=== PATIENT | female | born 1995 | race Caucasian/White ===

== ENCOUNTER 2020-08-23 13:25 | Inpatient (IN) | payer BC, SELFPAY ==
[2020-08-23] VITALS (29 sets, daily range): BP systolic 94–135; BP diastolic 53–93; PULSE 69–141; RESP 18; TEMP 36.6–37.2; O2SAT 94–100; BMI 31.5
--- NOTE | 2020-08-23 13:00 | PCM.HP.OB ---
- Problem List (1) 38 weeks gestation of Status: Acute (2) SROM (spontaneous rupture of membranes) Status: Acute History Date of Admission: 08/23/20 Final BALTA: 09/03/20 Final BALTA Source: LMP Gestational age: 38 Weeks and 3 Days History of this : This is a 25 year-old, G [1], P [0], at 38.3 weeks gestational age that presents with spontaneous rupture of membranes today at 1115. Patient reports large gush of clear fluid and continues to leak. Denies any vaginal bleeding. Patient having mild, irregular cramps. Positive movement. uncomplicated. Allergies No Known Allergies Allergy (Verified 08/23/20 13:36) Smoking Status: Never smoker Number of Fetus(es): 1 NST - FHR Rate Baby A Baseline: 140 Variability:: Moderate Accelerations:: 15 x 15 Decelerations:: None NST Reactive:: Yes FHR Category:: Category I Uterine Activity:: occasional History Past Pregnancies: Past Pregnancies Delivery Date Name GA/ Weeks Outcome Route Wt Infant Sex Labor Length Anesthesia Delivery Location Provider FOB Labs: B+ Rubella - immune HB- neg HC- neg RPR- NR HIV- NR GC/CH- neg GBS- negative COVID- 19 - negative Expected Infant Delivery Method: Spontaneous Vaginal Review of Systems Constitutional: Denies: Chills, Fever, Weight Change HEENT: Denies: Head Aches, Sinus Congestion, Sinus Drainage Cardiovascular: Denies: Chest Pain, Palpitations Respiratory: Denies: Cough, Shortness of breath at rest, Sputum production Gastrointestinal: Denies: Abdominal Pain, Nausea, Vomiting Genitourinary: Denies: Dysuria Skin: Denies: Rash, Wounds Neurological: Denies: Numbness, Tingling, Focal weakness Physical Exam Vitals: Vital Signs Temp Pulse BP Pulse Ox 98.6 F 92 110/53 L 96 08/23/20 18:10 08/23/20 19:33 08/23/20 19:33 08/23/20 19:16 General: Alert, Oriented x3, Cooperative HEENT: Atraumatic Cardiovascular: Regular rate Lungs: Normal air movement Abdomen: Soft, Non Tender, Gravid Neurological: Cranial nerves II-XII grossly intact Assessment/Plan All Active Problems 38 weeks gestation of (Acute) SROM (spontaneous rupture of membranes) (Acute) (spontaneous vaginal delivery) (Acute) This is a 25 year-old, G [1], P [0], at 38.3 weeks gestational age with spontaneous rupture of membranes. Admit to labor and delivery Routine labs IV fluids per orders GBS negative Category 1 tracing- NST reactive Cytotec 25 mcg PO x1 then reevaluate CE in [address] Mejia notified and is collaborating physician
[2020-08-23 13:59] LABS: Absolute Lymphocyte Count 1.29 X10^3/uL (0.83-4.51); Absolute Neutrophil Count 9.6 X10^3/uL (2.0-7.7); Basophil# 0.03 X10^3/uL; Basophil% 0.3 % (0-1); Eosinophil# 0.01 X10^3/uL; Eosinophils% 0.1 % (0-5); Hematocrit 38.3 % (37-47); Hemoglobin 12.8 g/dL (12.0-15.0); Lymphocyte # 1.29 X10^3/ul (4.0); Lymphocyte % 11.1 % (19-41); Mean Corp Hgb Conc 33.4 g/dL (32-36); Mean Corpuscular Hgb 31.3 pg (27.0-32.0); Mean Corpuscular Volume 93.6 fL (81-99); Mean Platelet Vol. 10.6 fl (6.2-12.0); Monocyte# 0.61 X10^3/uL; Monocyte% 5.2 % (0-10); NRBC Flagged by Analyzer 0 % (0-5); Neutrophil % 82.6 % (47-70); Platelet Count 227 K/mm3 (150-450); RBC Distribution Width CV 13.9 % (11.6-14.6); RBC Distribution Width SD 46.7 fl (35.1-43.9); Red Blood Count 4.09 M/mm3 (4.2-5.4); White Blood Count 11.6 K/mm3 (4.4-11.0)
[2020-08-23] MEDS: miSOPROStol 25 MCG TABLET PO (14:29)
[2020-08-23] MEDS: miSOPROStol 50 MCG TABLET PO (14:30)
[2020-08-23] MEDS: Lactated Ringers 1,000 ML 50 ML IV (16:10)
[2020-08-23] MEDS: Lactated Ringers 500 ML 999 ML IV (16:20)
[2020-08-23] MEDS: fentaNYL-bupivacaine (epidural) 100 ML BAG EPIDURAL (17:25)
[2020-08-23] MEDS: Oxytocin 30 units/NS 500 ml 30 UNITS/500 ML IV.SOLN 334 UNITS IV (18:50)
--- NOTE | 2020-08-23 19:26 | PCM.OPRPT ---
Problem List (1) 38 weeks gestation of Status: Acute (2) SROM (spontaneous rupture of membranes) Status: Acute (3) (spontaneous vaginal delivery) Status: Acute Report of Operation Date of Procedure: 08/23/20 Pre-Operative Diagnosis: Term gestation, spontaneous rupture of membranes Post-Operative Diagnosis: Same, live female Vaginal Delivery Maternal Presentation: Spontaneous Rupture of Membranes Patient presented to unit with SROM today at 1115 for clear fluid. Patient reported mild, irregular contractions with positive movement. Amniotic Membrane Rupture Type: Spontaneous at home Rupture of Membrane time: 1115 Amniotic Fluid Description: Clear Final BALTA: 09/03/20 Gestational age: 38 Weeks and 3 Days Date of Procedure: 08/23/20 Pre-Operative Diagnosis: Term gestation, SROM Post-Operative Diagnosis: Same, live female Surgery/ Procedure Performed: Spontaneous Vaginal Delivery Type of Anesthesia: Epidural, Local with 1% lidocaine Description of Procedure: Patient progressed to complete dilation with urge to bear down. Minimal pain relief from epidural. Provided labor support to patient and assisted with positioning changes and massage. Patient involuntarily pushing. Infant head delivered with minimal effort followed by posterior, anterior shoulder and remainder of . Vigorous female placed on maternal abdomen. 3 vessel cord clamped and cut by RN after 3 minute delay. Infant placed skin to skin with patient. Pitocin IV started for active management of the 3rd stage. Placenta delivered spontaneously and intact. Patient has plans to take placenta home to encapsulate. After inspection it was noted a second degree perineal laceration present. Laceration repaired in normal fashion using 3-0 Vicryl. Hemostasis occurred. Fundus firm 2 below U. Vaginal sweep completed by me. All instruments, laps and needles accounted for. Infant and patient bonding. EBL 200 cc APGARS- 8/9 Dr. Mejia notified of delivery Presentation: DEVYN Placental Delivery Description: Spontaneous Placenta Disposition: [facility] - Patient signed consent to take placenta home Cord Vessel Description: 3 Vessels Cord Entanglement: None Estimated Blood Loss: 200 Infant A gender: Female (1 minute): 8 (5 minute): 9 Episiotomy Description: None Laceration: 2nd degree Medications given after delivery: IV Pitocin Complications: None
[2020-08-23] MEDS: Ibuprofen 600 MG Tablet PO (22:25)
[2020-08-24] VITALS (10 sets, daily range): BP systolic 104–122; BP diastolic 52–67; PULSE 62–79; RESP 16–20; TEMP 36.5–36.8; O2SAT 93–96
--- NOTE | 2020-08-24 05:34 | NURSING ---
Release of placenta and waiver of liability consent signed and in chart, copy given to patient. Placenta in room in patient cooler.
[2020-08-24] MEDS: Ibuprofen 600 MG Tablet PO ×2 (08:57→16:35)
--- NOTE | 2020-08-24 10:02 | PCM.PN.OB ---
Patient Problems: Active and Suspected Problems 38 weeks gestation of (Acute) SROM (spontaneous rupture of membranes) (Acute) (spontaneous vaginal delivery) (Acute) Subjective: Patient seen at bedside. Feeling good. with support. Ambulating and voiding without difficulty. Pain is controlled. Desires discharge home tomorrow. - Physical Exam Vitals/I&O's: Vital Signs Temp Pulse Resp BP Pulse Ox 97.8 F 73 16 116/62 95 08/24/20 04:15 08/24/20 08:46 08/24/20 04:15 08/24/20 08:46 08/24/20 04:18 Oxygen Delivery Method Room Air Weight: 201 lb 4 oz Body Mass Index (BMI) 31.5 Intake and Output for Last 24 Hours 08/22/20 08/23/20 08/24/20 23:59 23:59 23:59 Intake Total 1388.33 / 1388.33 Output Total 800 / 800 600 / 600 Balance 588.33 / 588.33 -600 / -600 General: Alert, Oriented x3, Cooperative Oral: Moist Mucosa Lungs: Normal air movement Cardiovascular: Regular rate Abdomen: Soft, Non Tender Extremities: Capillary Refill Less than 3 Seconds Skin: No rashes Neurological: Cranial nerves II-XII grossly intact Psych/Mental Status: Normal Affect Microbiology Past 72 Hours 08/23/20 14:00 Mucosa - Nose SARS-CoV-2 Antigen (Rapid) - Final Laboratory Results 08/23/20 13:45: WBC 11.6 H, RBC 4.09 L, Hgb 12.8, Hct 38.3, MCV 93.6, MCH 31.3, MCHC 33.4, RDW Std Deviation 46.7 H, RDW Coeff of Farzad 13.9, Plt Count 227, MPV 10.6, Immature Gran % (Auto) 0.700, Neut % (Auto) 82.6 H, Lymph % (Auto) 11.1 L, [place] % (Auto) 5.2, Eos % (Auto) 0.1, Baso % (Auto) 0.3, Absolute Neuts (auto) 9.6 H, Absolute Lymphs (auto) 1.29, Nucleated RBC % 0 08/23/20 13:45: Blood Type B POSITIVE, Antibody Screen NEGATIVE Current Medications Acetaminophen (Acetaminophen 500 Mg Tablet) 1,000 mg PO Q8H PRN PRN PRN Reason: Pain Score 1-3 Bisacodyl (Bisacodyl 10 Mg Suppository) 10 mg RECTAL UD PRN PRN Reason: If no BM Dibucaine (Dibucaine 30 Gm Tube) 1 applic TOPICAL TID PRN PRN; Protocol PRN Reason: Discomfort Hydrocortisone (Hydrocortisone 2.5% Crm) 1 applic TOPICAL TID PRN PRN; Protocol PRN Reason: Discomfort Ibuprofen (Ibuprofen 600 Mg Tablet) 600 mg PO Q6H PRN PRN PRN Reason: Pain Score 1-3 Last Admin: 08/24/20 08:57 Dose: 600 mg Documented by: Methylergonovine Maleate (Methylergonovine 0.2 Mg/Ml Ampul) 0.2 mg IM X1 PRN PRN Reason: Excess bleeding/uterine atony Ondansetron HCl (Ondansetron 4 Mg/2 Ml Vial) 4 mg IV Q4H PRN PRN PRN Reason: Nausea Senna/Docusate Sodium (Senna/Docusate Sodium 1 Tablet) 1 - 2 tablet PO DAILY PRN PRN PRN Reason: Constipation Simethicone (Simethicone 80 Mg Tablet) 80 mg PO PCHS PRN PRN Reason: Indigestion/Stomach pain Sodium Chloride (0.9% Saline Lock 10 Ml Syringe) 5 - 15 ml IV UD PRN PRN Reason: SALINE FLUSH Medical Necessity - Tobacco Use Smoking Status: Never smoker Assessment/Plan All Active Problems 38 weeks gestation of (Acute) SROM (spontaneous rupture of membranes) (Acute) (spontaneous vaginal delivery) (Acute) PPD #1 - 2nd degree laceration Pain control support Anticipate discharge home tomorrow
[2020-08-25 01:51] VITALS: BP 112/63; PULSE 64; PULSE 65; RESP 18; TEMP 36.6; O2SAT 96; O2SAT 97
[2020-08-25] MEDS: Ibuprofen 600 MG Tablet PO (05:17)
[2020-08-25 07:53] VITALS: BP 105/58; PULSE 63
[2020-08-25 07:57] VITALS: BP 105/58; PULSE 63; RESP 18; TEMP 36.3
--- NOTE | 2020-08-25 08:58 | PCM.PN.OB ---
Patient Problems: Active and Suspected Problems 38 weeks gestation of (Acute) SROM (spontaneous rupture of membranes) (Acute) (spontaneous vaginal delivery) (Acute) Subjective: No complaints - Physical Exam Vitals/I&O's: Vital Signs Temp Pulse Resp BP Pulse Ox 97.4 F L 63 18 105/58 L 97 08/25/20 07:57 08/25/20 07:57 08/25/20 07:57 08/25/20 07:57 08/25/20 01:51 Oxygen Delivery Method Room Air Weight: 201 lb 4 oz Body Mass Index (BMI) 31.5 Intake and Output for Last 24 Hours 08/23/20 08/24/20 08/25/20 23:59 23:59 23:59 Intake Total 1388.33 / 1388.33 Output Total 800 / 800 600 / 600 Balance 588.33 / 588.33 -600 / -600 General: Alert, Oriented x3 Abdomen: Soft, Non Tender, Non-Distended - ff mid & below umb Extremities: No Calf Tenderness Microbiology Past 72 Hours 08/23/20 14:00 Mucosa - Nose SARS-CoV-2 Antigen (Rapid) - Final Current Medications Acetaminophen (Acetaminophen 500 Mg Tablet) 1,000 mg PO Q8H PRN PRN PRN Reason: Pain Score 1-3 Bisacodyl (Bisacodyl 10 Mg Suppository) 10 mg RECTAL UD PRN PRN Reason: If no BM Dibucaine (Dibucaine 30 Gm Tube) 1 applic TOPICAL TID PRN PRN; Protocol PRN Reason: Discomfort Hydrocortisone (Hydrocortisone 2.5% Crm) 1 applic TOPICAL TID PRN PRN; Protocol PRN Reason: Discomfort Ibuprofen (Ibuprofen 600 Mg Tablet) 600 mg PO Q6H PRN PRN PRN Reason: Pain Score 1-3 Last Admin: 08/25/20 05:17 Dose: 600 mg Documented by: Methylergonovine Maleate (Methylergonovine 0.2 Mg/Ml Ampul) 0.2 mg IM X1 PRN PRN Reason: Excess bleeding/uterine atony Ondansetron HCl (Ondansetron 4 Mg/2 Ml Vial) 4 mg IV Q4H PRN PRN PRN Reason: Nausea Senna/Docusate Sodium (Senna/Docusate Sodium 1 Tablet) 1 - 2 tablet PO DAILY PRN PRN PRN Reason: Constipation Simethicone (Simethicone 80 Mg Tablet) 80 mg PO PCHS PRN PRN Reason: Indigestion/Stomach pain Sodium Chloride (0.9% Saline Lock 10 Ml Syringe) 5 - 15 ml IV UD PRN PRN Reason: SALINE FLUSH Medical Necessity - Tobacco Use Smoking Status: Never smoker Assessment/Plan All Active Problems 38 weeks gestation of (Acute) SROM (spontaneous rupture of membranes) (Acute) (spontaneous vaginal delivery) (Acute) PPD#2 D/c home
--- NOTE | 2020-08-25 08:59 | DCINST_ITS ---
Discharge Diet: No Restrictions Discharge Activity: May Drive, May Shower May resume sexual activity in: 6 weeks Additional Instructions: If you experience any of the following, contact your healthcare provider. * Bleeding that soaks a pad every hour for 2 hours * Fever 100.4 or higher * Unrelieved incision or abdominal pain * Swelling, redness, discharge or bleeding from your incision or episiotomy site * Your incision begins to separate * Problems urinating (including inability to urinate or burning while urinating). * Visual changes * Severe headache * Flu-like symptoms * Pain or redness in one of both of your breasts * Pain, warmth, tenderness or swelling in your legs, especially the calf area * Frequent nausea and vomiting * Symptoms of depression or anxiety If you experience any of the following, call 911 or go to the nearest Emergency Room. * Chest pain * Problems breathing * Seizure activity * Partial or complete paralysis of a body part, slurred speech, weakness or drooping of the face, or a sudden inability to walk or hold your balance Allergies/Adverse Reactions: Allergies No Known Allergies Allergy (Verified 08/23/20 13:36) Medications to take at Discharge Acetaminophen [Tylenol] 1,000 mg PO Q8H PRN PRN tablet 08/25/20 Ibuprofen [Motrin] 600 mg PO Q6H PRN PRN tablet 08/25/20 Primary Care Physician: Care Physician,No Primary [Primary Care Provider] - Test Results: Test results from this visit will be discussed in further detail at your follow- up appointment, if applicable.
--- NOTE | 2020-08-25 08:59 | PCM.DCVAG ---
Discharge Diet: No Restrictions Discharge Activity: May Drive, May Shower May resume sexual activity in: 6 weeks Additional Instructions: If you experience any of the following, contact your healthcare provider. Bleeding that soaks a pad every hour for 2 hours Fever 100.4 or higher Unrelieved incision or abdominal pain Swelling, redness, discharge or bleeding from your incision or episiotomy site Your incision begins to separate Problems urinating (including inability to urinate or burning while urinating). Visual changes Severe headache Flu-like symptoms Pain or redness in one of both of your breasts Pain, warmth, tenderness or swelling in your legs, especially the calf area Frequent nausea and vomiting Symptoms of depression or anxiety If you experience any of the following, call 911 or go to the nearest Emergency Room. Chest pain Problems breathing Seizure activity Partial or complete paralysis of a body part, slurred speech, weakness or drooping of the face, or a sudden inability to walk or hold your balance Allergies/Adverse Reactions: Allergies No Known Allergies Allergy (Verified 08/23/20 13:36) Medications to take at Discharge Acetaminophen [Tylenol] 1,000 mg PO Q8H PRN PRN tablet 08/25/20 Ibuprofen [Motrin] 600 mg PO Q6H PRN PRN tablet 08/25/20 Primary Care Physician: Care Physician,No Primary [Primary Care Provider] - Test Results: Test results from this visit will be discussed in further detail at your follow-up appointment, if applicable.
== END 2020-08-25 11:40 | disposition home or self-care (01) | DRG 807 ==
LOC: WPOUT 13:27 → WP 13:37
PROVIDERS: Admitting Provider Advanced Practice Midwife; Visit Provider Advanced Practice Midwife
DX: O70.1 Second degree perineal laceration during delivery (principal); Z37.0 Single live birth; Z3A.38 38 weeks gestation of pregnancy
CPT/HCPCS: 59025; 59050; 85025; 86850; 86900; 86901; 87426; 99218; J7120; G0378

== ENCOUNTER → 2020-10-25 12:00 | Outpatient (CLI) | payer BC, SELFPAY ==
[2020-08-23 13:22] VITALS: BMI 31.5
== END ==
PROVIDERS: Referring Provider Advanced Practice Midwife; Visit Provider Advanced Practice Midwife
DX: Z39.1 Encounter for care and examination of lactating mother (principal)
CPT/HCPCS: 96158